=== PATIENT | female | born 1950 | race Two or more races ===

== ENCOUNTER 2018-01-25 22:03 | Inpatient (IN) | payer OTHER ==
[2018-01-26 00:11] LABS: BILIRUBIN,URINE NEGATIVE (NEG); CLARITY,URINE CLEAR; COLOR,URINE YELLOW; GLUCOSE,URINE NEGATIVE (NEG); NITRITE,URINE NEGATIVE (NEG); PROTEIN,URINE 30 mg/dL (NEG-TRACE); UROBILINOGEN,URINE 0.2 mg/dL (0.2 mg/dL)
[2018-01-26 00:23] LABS: BACTERIA,URINE MODERATE /HPF (0-FEW); RBC,URINE 0 /HPF (0-2); SQUAMOUS EPITHELIAL CELL,UR MOD /LPF
[2018-01-26 00:36] LABS: ADD MAN DIFF? NO
[2018-01-26 00:41] LABS: BASO % 1 % (0-3); EOS % 1 % (0-3); HEMATOCRIT 39.2 % (36.0-47.0); HEMOGLOBIN 13.6 g/dL (12.0-15.5); LYMPH % 16 % (24-48); MEAN CORPUSCULAR HEMOGLOBIN 33 pg (25-35); MEAN CORPUSCULAR HGB CONC 35 g/dL (31-37); MEAN CORPUSCULAR VOLUME 94 fL (79-100); MONO # 0.3 x10^3/uL (0.0-1.1); MONO % 4 % (0-9); NEUT # 4.9 x10^3uL (1.8-7.7); NEUT % 79 % (31-73); PLATELET COUNT 203 x10^3/uL (140-400); RED BLOOD COUNT 4.19 x10^6/uL (3.50-5.40); RED CELL DISTRIBUTION WIDTH 13.3 % (11.5-14.5); WHITE BLOOD COUNT 6.3 x10^3/uL (4.0-11.0)
[2018-01-26 00:51] LABS: ANION GAP 12 (6-14); BLOOD UREA NITROGEN 15 mg/dL (7-20); BUN/CREATININE RATIO 21 (6-20); CALCIUM 9.2 mg/dL (8.5-10.1); CARBON DIOXIDE 28 mmol/L (21-32); CHLORIDE 101 mmol/L (98-107); CREATININE 0.7 mg/dL (0.6-1.0); GLUCOSE 143 mg/dL (70-99); POTASSIUM 3.9 mmol/L (3.5-5.1); SODIUM 141 mmol/L (136-145)
[2018-01-26 00:56] LABS: ALBUMIN 3.7 g/dL (3.4-5.0); ALBUMIN/GLOBULIN RATIO 0.9 (1.0-1.7); ALK PHOS 76 U/L (46-116); ALT (SGPT) 17 U/L (14-59); AST (SGOT) 15 U/L (15-37); TOTAL BILIRUBIN 0.8 mg/dL (0.2-1.0); TOTAL PROTEIN 7.6 g/dL (6.4-8.2)
[2018-01-26 01:03] LABS: TROPONINI 0.104 ng/mL (0.000-0.055)
[2018-01-26] MEDS: LIDO:MAALOX 1:1 20 ML SINGLE DOSE. PO (01:35)
[2018-01-26] MEDS ORDERED: MORPHINE SULFATE 4 MG/ML DISP.SYRIN. IV (03:15)
[2018-01-26] MEDS ORDERED: NITROGLYCERIN SUBLINGUAL 0.4 MG BOTTLE OF 25. SL (03:15)
[2018-01-26] MEDS: ASPIRIN CHEWABLE 81 MG TABLET. PO (03:40)
[2018-01-26] MEDS ORDERED: NITROGLYCERIN OINT 1 GM PACKET. TP (05:45)
[2018-01-26 06:56] LABS: MAGNESIUM 1.7 mg/dL (1.8-2.4)
[2018-01-26 09:17] LABS: CHOLESTEROL 195 mg/dL (0-200); CHOLESTEROL/HDL RATIO 5.3; HDLC 37 mg/dL (40-60); LDLC 129 mg/dL (0-100); NON-HDL CHOLESTEROL 158 mg/dL (0-129); TRIGLYCERIDES 147 mg/dL (0-150); VLDLC 29 mg/dL (0-40)
[2018-01-26 09:19] LABS: THYROID STIM HORMONE (TSH) 2.095 uIU/mL (0.358-3.74)
[2018-01-26] MEDS: MAGNESIUM SULFATE 2GM 50 ML IV (09:41)
[2018-01-26] MEDS ORDERED: DEXTROSE 50% 25 GM / 50ML DISP.SYRIN. IV (10:15)
[2018-01-26 10:26] LABS: TROPONINI 0.111 ng/mL (0.000-0.055)
[2018-01-26 10:31] LABS: POC GLUCOSE 114 mg/dL (70-99)
[2018-01-26 13:26] LABS: POC GLUCOSE 108 mg/dL (70-99)
[2018-01-26] MEDS ORDERED: LISINOPRIL 10 MG TABLET PO (16:00)
[2018-01-26] MEDS: INSULIN LISPRO 300 UNITS/3 ML INSULN.PEN. SQ (17:00)
[2018-01-26] MEDS ORDERED: PNEUMOCOCCAL VAX SCREEN BY RX. MC (17:00)
[2018-01-26 17:30] LABS: POC GLUCOSE 105 mg/dL (70-99)
[2018-01-26] MEDS: FLUoxetine HCL 20 MG CAPSULE PO (17:30)
[2018-01-26] MEDS: CLOPIDOGREL BISULFATE 75 MG TABLET PO (17:32)
[2018-01-26] MEDS: LISINOPRIL 20 MG TABLET PO (17:32)
[2018-01-26] MEDS: PENTOXIFYLLINE ER 400 MG TABLET.ER. PO (17:32)
[2018-01-26] MEDS: PANTOPRAZOLE 40 MG TABLET.DR. PO (17:32)
[2018-01-26] MEDS: CARVEDILOL 3.125 MG TABLET. PO (17:33)
[2018-01-26] MEDS: ACETAMINOPHEN 325 MG TABLET. PO (20:34)
[2018-01-26] MEDS: ATORVASTATIN CALCIUM 10 MG TABLET. PO (20:34)
[2018-01-26] MEDS ORDERED: NON FORMULARY ITEM (Pravastatin Sodium 20 MG) PO (21:00)
[2018-01-26 21:09] LABS: POC GLUCOSE 148 mg/dL (70-99)
[2018-01-27] MEDS: IV 1/2 NORMAL SALINE 1,000 ML IV ×2 (00:08→09:11)
[2018-01-27 05:18] LABS: HEMATOCRIT 38.4 % (36.0-47.0); HEMOGLOBIN 13.1 g/dL (12.0-15.5); MEAN CORPUSCULAR HEMOGLOBIN 32 pg (25-35); MEAN CORPUSCULAR HGB CONC 34 g/dL (31-37); MEAN CORPUSCULAR VOLUME 94 fL (79-100); PLATELET COUNT 186 x10^3/uL (140-400); RED BLOOD COUNT 4.09 x10^6/uL (3.50-5.40); RED CELL DISTRIBUTION WIDTH 13.5 % (11.5-14.5); WHITE BLOOD COUNT 4.5 x10^3/uL (4.0-11.0)
[2018-01-27 05:50] LABS: ALBUMIN 3.5 g/dL (3.4-5.0); ALBUMIN/GLOBULIN RATIO 0.9 (1.0-1.7); ALK PHOS 67 U/L (46-116); ALT (SGPT) 16 U/L (14-59); ANION GAP 10 (6-14); AST (SGOT) 13 U/L (15-37); BLOOD UREA NITROGEN 16 mg/dL (7-20); BUN/CREATININE RATIO 20 (6-20); CALCIUM 8.8 mg/dL (8.5-10.1); CARBON DIOXIDE 29 mmol/L (21-32); CHLORIDE 102 mmol/L (98-107); CREATININE 0.8 mg/dL (0.6-1.0); GFR 71.1; GLUCOSE 101 mg/dL (70-99); POTASSIUM 3.2 mmol/L (3.5-5.1); SODIUM 141 mmol/L (136-145); TOTAL BILIRUBIN 1.1 mg/dL (0.2-1.0); TOTAL PROTEIN 7.3 g/dL (6.4-8.2)
[2018-01-27 07:55] LABS: POC GLUCOSE 115 mg/dL (70-99)
[2018-01-27] MEDS: INSULIN LISPRO 300 UNITS/3 ML INSULN.PEN. SQ ×3 (08:00→17:00)
[2018-01-27] MEDS: ENOXAPARIN 40 MG/0.4 ML SYRINGE. SQ (08:00)
[2018-01-27] MEDS ORDERED: LIDOCAINE 2% 20 ML VIAL. (08:07)
[2018-01-27] MEDS ORDERED: IODIXANOL 320 MG/ML 100 ML VIAL. (08:07)
[2018-01-27] MEDS: LISINOPRIL 20 MG TABLET PO ×2 (08:11→20:55)
[2018-01-27] MEDS: CLOPIDOGREL BISULFATE 75 MG TABLET PO (08:11)
[2018-01-27] MEDS: ASPIRIN CHEWABLE 81 MG TABLET. PO (08:11)
[2018-01-27] MEDS: CARVEDILOL 3.125 MG TABLET. PO ×2 (08:12→17:47)
[2018-01-27] MEDS: PANTOPRAZOLE 40 MG TABLET.DR. PO (08:14)
[2018-01-27] MEDS ORDERED: NON FORMULARY ITEM (Icosapent Ethyl (Vascepa) 1 GM) PO (09:00)
[2018-01-27] MEDS ORDERED: fentaNYL PF VIAL 100 MCG/2 ML VIAL (09:55)
[2018-01-27] MEDS ORDERED: MIDAZOLAM HCL/PF 2 MG/2 ML VIAL. (09:55)
[2018-01-27] MEDS ORDERED: CONTRAST GIVEN MC (10:15)
[2018-01-27] MEDS: LIDOCAINE 2% 20 ML VIAL. IJ (10:19)
[2018-01-27] MEDS: IODIXANOL 320 MG/ML 100 ML VIAL. IART (10:19)
[2018-01-27] MEDS: fentaNYL PF VIAL 100 MCG/2 ML VIAL IV (10:20)
[2018-01-27] MEDS: MIDAZOLAM HCL/PF 2 MG/2 ML VIAL. IV (10:32)
[2018-01-27] MEDS: POTASSIUM CHLORIDE 20 MEQ TABLET.ER. PO ×2 (14:30→15:39)
[2018-01-27] MEDS: ACETAMINOPHEN 325 MG TABLET. PO ×2 (14:35→20:55)
[2018-01-27] MEDS: FLUoxetine HCL 20 MG CAPSULE PO (15:38)
[2018-01-27] MEDS: PENTOXIFYLLINE ER 400 MG TABLET.ER. PO (15:38)
[2018-01-27 17:40] LABS: POC GLUCOSE 122 mg/dL (70-99)
[2018-01-27] MEDS: ATORVASTATIN CALCIUM 10 MG TABLET. PO (20:55)
[2018-01-27 21:07] LABS: POC GLUCOSE 168 mg/dL (70-99)
[2018-01-28] MEDS: IV 1/2 NORMAL SALINE 1,000 ML IV ×2 (01:51→18:31)
[2018-01-28] MEDS: ACETAMINOPHEN 325 MG TABLET. PO (04:38)
[2018-01-28] MEDS: INSULIN LISPRO 300 UNITS/3 ML INSULN.PEN. SQ ×3 (08:00→17:00)
[2018-01-28] MEDS: ENOXAPARIN 40 MG/0.4 ML SYRINGE. SQ (08:00)
[2018-01-28 08:13] LABS: POC GLUCOSE 114 mg/dL (70-99)
[2018-01-28] MEDS: PANTOPRAZOLE 40 MG TABLET.DR. PO (08:15)
[2018-01-28] MEDS: ASPIRIN CHEWABLE 81 MG TABLET. PO (08:15)
[2018-01-28] MEDS: FLUoxetine HCL 20 MG CAPSULE PO (08:16)
[2018-01-28] MEDS: CLOPIDOGREL BISULFATE 75 MG TABLET PO (08:16)
[2018-01-28] MEDS: LINAGLIPTIN 5 MG TABLET PO (08:16)
[2018-01-28] MEDS: PENTOXIFYLLINE ER 400 MG TABLET.ER. PO (08:16)
[2018-01-28] MEDS: LISINOPRIL 20 MG TABLET PO ×2 (08:20→21:28)
[2018-01-28 08:51] LABS: ADD MAN DIFF? NO
[2018-01-28 09:03] LABS: ANION GAP 6 (6-14); BLOOD UREA NITROGEN 16 mg/dL (7-20); CALCIUM 8.4 mg/dL (8.5-10.1); CARBON DIOXIDE 29 mmol/L (21-32); CHLORIDE 106 mmol/L (98-107); GLUCOSE 134 mg/dL (70-99); POTASSIUM 3.9 mmol/L (3.5-5.1); SODIUM 141 mmol/L (136-145)
[2018-01-28 09:05] LABS: BASO % 0 % (0-3); EOS # 0.1 x10^3/uL (0.0-0.7); EOS % 2 % (0-3); HEMATOCRIT 36.7 % (36.0-47.0); HEMOGLOBIN 12.6 g/dL (12.0-15.5); LYMPH # 1.1 x10^3/uL (1.0-4.8); LYMPH % 22 % (24-48); MEAN CORPUSCULAR HEMOGLOBIN 33 pg (25-35); MEAN CORPUSCULAR HGB CONC 34 g/dL (31-37); MEAN CORPUSCULAR VOLUME 95 fL (79-100); MONO # 0.4 x10^3/uL (0.0-1.1); MONO % 8 % (0-9); NEUT # 3.6 x10^3uL (1.8-7.7); NEUT % 68 % (31-73); PLATELET COUNT 172 x10^3/uL (140-400); RED BLOOD COUNT 3.87 x10^6/uL (3.50-5.40); RED CELL DISTRIBUTION WIDTH 13.4 % (11.5-14.5); WHITE BLOOD COUNT 5.3 x10^3/uL (4.0-11.0)
[2018-01-28 11:15] LABS: POC GLUCOSE 122 mg/dL (70-99)
[2018-01-28] MEDS ORDERED: hydrALAZINE 20 MG/ML VIAL. IVP (14:30)
[2018-01-28 17:17] LABS: POC GLUCOSE 121 mg/dL (70-99)
[2018-01-28 20:54] LABS: POC GLUCOSE 146 mg/dL (70-99)
[2018-01-28] MEDS: ATORVASTATIN CALCIUM 10 MG TABLET. PO (21:27)
[2018-01-29] MEDS: ACETAMINOPHEN 325 MG TABLET. PO (00:40)
[2018-01-29] MEDS: PANTOPRAZOLE 40 MG TABLET.DR. PO (05:07)
[2018-01-29 07:31] LABS: POC GLUCOSE 120 mg/dL (70-99)
[2018-01-29] MEDS: ENOXAPARIN 40 MG/0.4 ML SYRINGE. SQ (08:00)
[2018-01-29] MEDS: INSULIN LISPRO 300 UNITS/3 ML INSULN.PEN. SQ ×3 (08:00→17:00)
[2018-01-29 10:53] LABS: POC GLUCOSE 144 mg/dL (70-99)
[2018-01-29] MEDS: IV RINGERS,LACTATED 1000ML 1,000 ML IV (14:03)
[2018-01-29] MEDS ORDERED: PROPOFOL 20 ML IV (15:48)
[2018-01-29] MEDS ORDERED: LIDOCAINE 2% PF Vial for OR 5 ML VIAL. (15:48)
[2018-01-29] MEDS: LINAGLIPTIN 5 MG TABLET PO (17:09)
[2018-01-29] MEDS: PENTOXIFYLLINE ER 400 MG TABLET.ER. PO (17:09)
[2018-01-29] MEDS: CLOPIDOGREL BISULFATE 75 MG TABLET PO (17:09)
[2018-01-29] MEDS: ASPIRIN CHEWABLE 81 MG TABLET. PO (17:10)
[2018-01-29] MEDS: FLUoxetine HCL 20 MG CAPSULE PO (17:10)
[2018-01-29] MEDS: LISINOPRIL 20 MG TABLET PO (17:15)
[2018-01-29 17:46] LABS: POC GLUCOSE 115 mg/dL (70-99)
== END 2018-01-29 19:08 | disposition home or self-care (01) | DRG 287 ==
LOC: ER 22:03 → ED HOLD 01-26 01:36 → 2 NORTH 01-26 15:28
PROC: 0DB68ZX Excision of Stomach, Via Natural or Artificial Opening Endoscopic, Diagnostic (ICD-10-PCS; 2018-01-29 15:00)
PROC: 4A023N7 Measurement of Cardiac Sampling and Pressure, Left Heart, Percutaneous Approach (ICD-10-PCS; principal; 2018-01-29 15:53)
PROC: B2111ZZ Fluoroscopy of Multiple Coronary Arteries using Low Osmolar Contrast (ICD-10-PCS; 2018-01-29 15:53)
PROC: B2151ZZ Fluoroscopy of Left Heart using Low Osmolar Contrast (ICD-10-PCS; 2018-01-29 15:53)
PROC: B3101ZZ Fluoroscopy of Thoracic Aorta using Low Osmolar Contrast (ICD-10-PCS; 2018-01-29 15:53)
PROC: B41F1ZZ Fluoroscopy of Right Lower Extremity Arteries using Low Osmolar Contrast (ICD-10-PCS; 2018-01-29 15:53)
DX: I20.0 Unstable angina (principal); E11.42 Type 2 diabetes mellitus with diabetic polyneuropathy; E11.51 Type 2 diabetes mellitus with diabetic peripheral angiopathy without gangrene; E87.6 Hypokalemia; E78.00 Pure hypercholesterolemia, unspecified; E78.5 Hyperlipidemia, unspecified; F32.9 Major depressive disorder, single episode, unspecified; I11.9 Hypertensive heart disease without heart failure; K21.0 Gastro-esophageal reflux disease with esophagitis; K27.9 Peptic ulcer, site unspecified, unspecified as acute or chronic, without hemorrhage or perforation; M19.90 Unspecified osteoarthritis, unspecified site; K29.40 Chronic atrophic gastritis without bleeding; I35.1 Nonrheumatic aortic (valve) insufficiency; R13.10 Dysphagia, unspecified; F41.9 Anxiety disorder, unspecified; W19.XXXD Unspecified fall, subsequent encounter; S22.42XD Multiple fractures of ribs, left side, subsequent encounter for fracture with routine healing; Z79.899 Other long term (current) drug therapy; Z82.49 Family history of ischemic heart disease and other diseases of the circulatory system; Z82.3 Family history of stroke; Z90.49 Acquired absence of other specified parts of digestive tract
CPT/HCPCS: 36415; 70450; 71045; 80048; 80053; 80061; 81001; 82962; 83735; 84443; 84484; 85025; 85027; 87086; 87186; 93005; 93306; 93458; 93567; 99152; 99153; 99285; 99285-25; C1769; C1771; C1892; G0269; J1644; J1650; J1815; J2250; J2704; J3010; J3475; J7120

== ENCOUNTER 2018-02-24 02:48 | Emergency (ER) | payer OTHER ==
[2018-02-24 03:44] LABS: BILIRUBIN,URINE NEGATIVE (NEG); CLARITY,URINE CLEAR; COLOR,URINE YELLOW; GLUCOSE,URINE NEGATIVE (NEG); NITRITE,URINE NEGATIVE (NEG); PROTEIN,URINE 100 mg/dL (NEG-TRACE); UROBILINOGEN,URINE 0.2 mg/dL (0.2 mg/dL)
[2018-02-24 03:56] LABS: BACTERIA,URINE 0 /HPF (0-FEW); RBC,URINE OCC /HPF (0-2); SQUAMOUS EPITHELIAL CELL,UR FEW /LPF
[2018-02-24 04:33] LABS: ADD MAN DIFF? NO
[2018-02-24] MEDS: LIDO:MAALOX 1:1 20 ML SINGLE DOSE. SWSW (04:34)
[2018-02-24] MEDS: fentaNYL PF VIAL 100 MCG/2 ML VIAL IV (04:34)
[2018-02-24] MEDS: ONDANSETRON ODT 4 MG TAB.RAPDIS. PO (04:34)
[2018-02-24 04:44] LABS: BASO % 0 % (0-3); EOS # 0.1 x10^3/uL (0.0-0.7); EOS % 1 % (0-3); HEMATOCRIT 39.1 % (36.0-47.0); HEMOGLOBIN 13.4 g/dL (12.0-15.5); LYMPH # 1.2 x10^3/uL (1.0-4.8); LYMPH % 23 % (24-48); MEAN CORPUSCULAR HEMOGLOBIN 32 pg (25-35); MEAN CORPUSCULAR HGB CONC 34 g/dL (31-37); MEAN CORPUSCULAR VOLUME 95 fL (79-100); MONO # 0.4 x10^3/uL (0.0-1.1); MONO % 7 % (0-9); NEUT # 3.6 x10^3uL (1.8-7.7); NEUT % 69 % (31-73); PLATELET COUNT 201 x10^3/uL (140-400); RED BLOOD COUNT 4.13 x10^6/uL (3.50-5.40); RED CELL DISTRIBUTION WIDTH 13.4 % (11.5-14.5); WHITE BLOOD COUNT 5.3 x10^3/uL (4.0-11.0)
[2018-02-24 04:59] LABS: ANION GAP 12 (6-14); BLOOD UREA NITROGEN 11 mg/dL (7-20); BUN/CREATININE RATIO 14 (6-20); CALCIUM 9.3 mg/dL (8.5-10.1); CARBON DIOXIDE 26 mmol/L (21-32); CHLORIDE 103 mmol/L (98-107); CREATININE 0.8 mg/dL (0.6-1.0); GFR 71.1; GLUCOSE 124 mg/dL (70-99); POTASSIUM 3.3 mmol/L (3.5-5.1); SODIUM 141 mmol/L (136-145)
[2018-02-24 05:05] LABS: ALBUMIN 3.9 g/dL (3.4-5.0); ALK PHOS 74 U/L (46-116); ALT (SGPT) 13 U/L (14-59); AST (SGOT) 12 U/L (15-37); LIPASE 329 U/L (73-393); TOTAL BILIRUBIN 0.7 mg/dL (0.2-1.0); TOTAL PROTEIN 7.7 g/dL (6.4-8.2)
== END 2018-02-24 07:25 | disposition home or self-care (01) ==
LOC: ER 02:48
DX: R51 Headache (principal); E11.9 Type 2 diabetes mellitus without complications; E78.00 Pure hypercholesterolemia, unspecified; I10 Essential (primary) hypertension; R10.13 Epigastric pain; Z90.49 Acquired absence of other specified parts of digestive tract
CPT/HCPCS: 36415; 80053; 81001; 83690; 85025; 87086; 96374; 99284-25; 99285-25; J3010; Q0162